=== PATIENT | female | born 1945 | race Caucasian/White ===

== ENCOUNTER 2021-02-02 21:59 | Emergency (ER) | payer OTHER, SELFPAY ==
[~2021-02-02] VITALS: Ht 170.2 cm; Wt 95.3 kg
[2021-02-02 22:06] VITALS: BP_SYST 158
[2021-02-02] MEDS ORDERED: LEVO125T8 PO (22:35)
[2021-02-02] MEDS ORDERED: TOPXL100 PO (22:35)
[2021-02-02] MEDS ORDERED: FERR325T30 PO (22:35)
[2021-02-02] MEDS ORDERED: DIGO125T PO (22:35)
[2021-02-02] MEDS ORDERED: LISI20TA PO (22:35)
[2021-02-02] MEDS ORDERED: ASPI-1393 PO (22:35)
[2021-02-02] MEDS ORDERED: ASCO500C18 PO (22:35)
[2021-02-02] MEDS ORDERED: FURO20TA4 PO (22:35)
[2021-02-02] MEDS ORDERED: LIP20 PO (22:35)
[2021-02-02 22:39] LABS: BILIRUBIN,URINE NEGATIVE (NEGATIVE); COLOR,URINE YELLOW (YELLOW); GLUCOSE,URINE NEGATIVE (NEGATIVE); KETONES,URINE NEGATIVE (NEGATIVE); LEUKOCYTE ESTERASE ,URINE 1+ (NEGATIVE); NITRITE, URINE NEGATIVE (NEGATIVE); PH,URINE 5.5 (5.0-8.0); PROTEIN URINE NEGATIVE (NEGATIVE); UROBILINOGEN,URINE 0.2 (0.2-1.0)
[2021-02-02 22:40] LABS: BLOOD, URINE TRACE (NEGATIVE); CLARITY/URINE SLIGHTLY CLOUDY (CLEAR)
[2021-02-02 23:07] LABS: BACTERIA,URINE FEW /HPF (None Seen)
[2021-02-02] MEDS: hydrALAZINE HCL 20 MG/ML VIAL IVP ONE (23:40)
[2021-02-02] MEDS ORDERED: hydrALAZINE HCL 20 MG/ML VIAL ONE (23:41)
[2021-02-02 23:49] LABS: BASOPHILS % (AUTO) 0.7 % (0.0-2.0); EOSINOPHILS # (AUTO) 0.2 K/uL (0.0-0.4); EOSINOPHILS % (AUTO) 3.1 % (0.0-4.0); HEMATOCRIT 28.7 % (36-48); HEMOGLOBIN 9.6 g/dL (12.0-16.0); LYMPHOCYTES # (AUTO) 1.4 K/uL (1.0-5.5); MEAN CORPUSCULAR HEMOGLOBIN 31 pg (27-31); MEAN CORPUSCULAR HGB CONC 33 % (32-36); MEAN CORPUSCULAR VOLUME 92 fL (79.0-98.0); MONOCYTES # (AUTO) 0.5 K/uL (0.0-1.0); MONOCYTES % (AUTO) 9.6 % (1.7-9.3); NEUTROPHILS # (AUTO) 2.8 K/uL (1.8-7.7); NEUTROPHILS % (AUTO) 57.6 % (40.0-70.0); PLATELET COUNT (AUTO) 307 K/uL (130-430); RED BLOOD CELL COUNT(AUTO) 3.13 MIL/uL (4.2-6.2); RED CELL DISTRIBUTION WIDTH 13.2 % (9.0-15.0); WHITE BLOOD COUNT (AUTO) 4.9 K/uL (4.8-10.8)
[2021-02-02 23:50] LABS: PROTHROMBIN TIME 9.8 SECS (9.5-12.5)
[2021-02-02 23:51] LABS: ANION GAP 6 (5-15); CALCIUM 8.3 mg/dL (8.4-11.0); CHLORIDE 106 mmol/L (98-107); GLUCOSE 153 mg/dL (70-99); POTASSIUM 4.1 mmol/L (3.5-5.1); SODIUM SERUM 139 mmol/L (136-145); UREA NITROGEN, BLOOD 20 mg/dL (8-21)
[2021-02-03] MEDS: hydrALAZINE HCL 20 MG/ML VIAL IVP ONE (00:02)
[2021-02-03 00:05] LABS: ALANINE AMINOTRANSFERASE 17 U/L (12-78); ALBUMIN 3.2 g/dL (3.4-4.8); ASPARTATE AMINOTRANSFERASE 12 U/L (10-37); DIGOXIN 1.9 ng/mL (0.80-2.00); TOTAL BILIRUBIN 0.3 mg/dL (0.0-1.0)
[2021-02-03] MEDS ORDERED: ONDANSETRON HCL 4 MG/2 ML VIAL ONE (00:59)
[2021-02-03] MEDS: ONDANSETRON HCL 4 MG/2 ML VIAL IVP ONE (01:05)
[2021-02-03] MEDS ORDERED: NITR-85 PO (01:29)
[2021-02-03] MEDS ORDERED: ONDA-8 TL (01:29)
[2021-02-03 02:00] VITALS: BP_SYST 154
[2021-02-03] MEDS: NITROFURANTOIN MONOHYD/M-CRYST 100 MG CAPSULE (MacroBID) PO ONE (02:14)
[2021-02-03] MEDS: ACETAMINOPHEN 325 MG TABLET PO ONE (02:14)
[2021-02-09] MEDS ORDERED: DOCU-144 PO (12:22)
[2021-02-09] MEDS ORDERED: LISI10TA29 PO (12:22)
[2021-02-09] MEDS ORDERED: HCT25 PO (12:22)
[2021-02-09] MEDS ORDERED: HYDR-4038 PO (12:22)
[2021-02-09] MEDS ORDERED: PSYL3.4P5 PO (12:22)
[2021-02-09] MEDS ORDERED: NOR10 PO (12:22)
== END 2021-02-03 02:00 | disposition home or self-care (01) ==
LOC: SED 21:59
DX: I10 Essential (primary) hypertension (principal); D64.9 Anemia, unspecified; I48.91 Unspecified atrial fibrillation; E03.9 Hypothyroidism, unspecified; Z79.899 Other long term (current) drug therapy; Z20.822 Contact with and (suspected) exposure to COVID-19
CPT/HCPCS: 36415; 70450; 71045; 76376; 80053; 80162; 81000; 83880; 84484; 85025; 85610; 85730; 87086; 87426; 93005; 96374; 96375; 99285; J0360; J2405

== ENCOUNTER 2021-02-03 21:18 | Emergency (ER) | payer OTHER ==
[~2021-02-03] VITALS: Ht 170.2 cm; Wt 81.6 kg
[~2021-02-03 21:18] MED LIST: ASCO500C18 PO; ASPI-1393 PO; DIGO125T PO; FERR325T30 PO; FURO20TA4 PO; LEVO125T8 PO; LIP20 PO; LISI20TA PO; NITR-85 PO; ONDA-8 TL; TOPXL100 PO
[2021-02-03 21:24] VITALS: BP_SYST 201
[2021-02-03] MEDS ORDERED: METOPROLOL TARTRATE 25 MG TABLET PO ONE (22:30)
[2021-02-03] MEDS ORDERED: hydrALAZINE HCL 20 MG/ML VIAL IVP ONE (22:45)
[2021-02-03 23:29] VITALS: BP_SYST 171
== END 2021-02-03 23:29 | disposition home or self-care (01) ==
LOC: SED 21:18
DX: I10 Essential (primary) hypertension (principal); N39.0 Urinary tract infection, site not specified; E11.9 Type 2 diabetes mellitus without complications; Z79.899 Other long term (current) drug therapy
CPT/HCPCS: 96374; 99283; J0360

== ENCOUNTER 2022-01-27 15:50 | Emergency (ER) | payer OTHER ==
[~2022-01-27] VITALS: Ht 157.5 cm; Wt 86.2 kg
[~2022-01-27 15:50] MED LIST changes: +DOCU-144 PO; +HCT25 PO; +HYDR-4038 PO; +LISI10TA29 PO; +NOR10 PO; +PSYL3.4P5 PO; -TOPXL100 PO
[2022-01-27 15:57] VITALS: BP_SYST 140
--- NOTE | 2022-01-27 16:19 | NUR ---
Patient to ER bed 04 to gown for evaluation. Side rails up.
--- NOTE | 2022-01-27 16:45 | NUR ---
SING AT BEDSIDE FOR EVALUATION.
[2022-01-27] MEDS ORDERED: KETOROLAC TROMETHAMINE 60 MG/2 ML VIAL IM ONE (17:00)
--- NOTE | 2022-01-27 17:50 | NUR ---
patient aaox4 and ambulatory from home c/o lower back pain that radiates to left leg. stating having 9/10 pain. able to ambulate. per patient it started this morning. doesnt speak faroese. son at bedside to translate. denies any trauma to leg.
--- NOTE | 2022-01-27 17:53 | NUR ---
PATIENT TAKEN TO XRAY VIA WHEELCHAIR.
[2022-01-27] MEDS ORDERED: IBUP-1969 PO (18:19)
[2022-01-27] MEDS ORDERED: HYDR-3917 PO (18:19)
[2022-01-27 18:37] VITALS: BP_SYST 140
--- NOTE | 2022-01-27 18:38 | NUR ---
Patient given written and verbal discharge instructions and verbalizes understanding. DR.SING HETAL GARCIA discussed with patient the results and treatment provided. Patient in stable condition. ID arm band removed. Rx of NORCO, MOTRIN given. Patient educated on pain management and to follow up with PMD. Pain Scale 0/10 Opportunity for questions provided and answered. Medication side effect fact sheet provided.
== END 2022-01-27 18:38 | disposition home or self-care (01) ==
LOC: SED 15:50
DX: M54.32 Sciatica, left side (principal); E11.9 Type 2 diabetes mellitus without complications; I10 Essential (primary) hypertension; Z79.899 Other long term (current) drug therapy
CPT/HCPCS: 72100; 96372; 99283; J1885

== ENCOUNTER 2022-02-12 11:45 | Emergency (ER) | payer OTHER ==
[~2022-02-12 11:45] MED LIST changes: +HYDR-3917 PO; +IBUP-1969 PO
[2022-02-12 12:11] VITALS: BP_SYST 113
--- NOTE | 2022-02-12 12:11 | NUR ---
Pt triaged and placed in waiting room pending bed availability.
--- NOTE | 2022-02-12 12:20 | NUR ---
ER at bedside examining patient.
--- NOTE | 2022-02-12 12:20 | NUR ---
RECEIVED PT IN BED #4 FROM HOME WITH CC OF ABDOMINAL PAIN AND NAUSEA. PT IS STABLE, NAD, VSS, AAOx4, AWAITING ASSESSMENTS WITH DISPOSITION WITH PLAN OF CARE.
--- NOTE | 2022-02-12 12:21 | NUR ---
Patient to ER bed 4 for evaluation. Side rails up. Report given to Eliezer GOODE.
[2022-02-12 13:15] LABS: BASOPHILS # (AUTO) 0.1 K/uL (0.0-0.2); BASOPHILS % (AUTO) 1.1 % (0.0-2.0); EOSINOPHILS # (AUTO) 0.2 K/uL (0.0-0.4); HEMATOCRIT 30.8 % (36-48); HEMOGLOBIN 10.4 g/dL (12.0-16.0); LYMPHOCYTES # (AUTO) 1.4 K/uL (1.0-5.5); LYMPHOCYTES % (AUTO) 28.3 % (20.5-51.5); MEAN CORPUSCULAR HEMOGLOBIN 31 pg (27-31); MEAN CORPUSCULAR HGB CONC 34 % (32-36); MEAN CORPUSCULAR VOLUME 92 fL (79.0-98.0); MONOCYTES # (AUTO) 0.3 K/uL (0.0-1.0); NEUTROPHILS # (AUTO) 2.9 K/uL (1.8-7.7); NEUTROPHILS % (AUTO) 59.6 % (40.0-70.0); PLATELET COUNT (AUTO) 313 K/uL (130-430); RED BLOOD CELL COUNT(AUTO) 3.34 MIL/uL (4.2-6.2); RED CELL DISTRIBUTION WIDTH 12.8 % (9.0-15.0); WHITE BLOOD COUNT (AUTO) 4.9 K/uL (4.8-10.8)
[2022-02-12 13:24] LABS: ANION GAP 9 (5-15); CALCIUM 8.5 mg/dL (8.4-11.0); CHLORIDE 104 mmol/L (98-107); CREATININE 2.23 mg/dL (0.55-1.30); GLUCOSE 363 mg/dL (70-99); POTASSIUM 4.5 mmol/L (3.5-5.1); SODIUM SERUM 134 mmol/L (136-145); UREA NITROGEN, BLOOD 50 mg/dL (8-21)
[2022-02-12 13:30] LABS: AMYLASE 30 U/L (0-100); ASPARTATE AMINOTRANSFERASE 13 U/L (10-37); LACTATE DEHYDROGENASE 116 U/L (81-234); LIPASE 62 U/L (73-393); TOTAL BILIRUBIN 0.3 mg/dL (0.0-1.0)
[2022-02-12 13:33] LABS: C-REACTIVE PROTEIN QUANT < 0.2 mg/dL (0-0.5)
[2022-02-12 13:53] LABS: ALANINE AMINOTRANSFERASE 7 U/L (12-78)
[2022-02-12] MEDS ORDERED: HYDR-3917 PO (13:55)
[2022-02-12] MEDS ORDERED: OMEP20CA15 PO (13:55)
[2022-02-12] MEDS ORDERED: INSULIN NPH/REGULAR 70-30, 100 UNITS/ML, 10 ML VIAL SUBCUT ONE (14:00)
[2022-02-12 14:05] VITALS: BP_SYST 113
--- NOTE | 2022-02-12 14:06 | NUR ---
Patient given written and verbal discharge instructions and verbalizes understanding. ER MD discussed with patient the results and treatment provided. Patient in stable condition. ID arm band removed. Rx of given. Patient educated on pain management and to follow up with PMD. Opportunity for questions provided and answered. Medication side effect fact sheet provided.
== END 2022-02-12 14:06 | disposition home or self-care (01) ==
LOC: SED 11:45
DX: K29.70 Gastritis, unspecified, without bleeding (principal); E11.65 Type 2 diabetes mellitus with hyperglycemia; K80.80 Other cholelithiasis without obstruction; N28.9 Disorder of kidney and ureter, unspecified; I10 Essential (primary) hypertension; Z79.899 Other long term (current) drug therapy
CPT/HCPCS: 36415; 74176; 76376; 80053; 82150; 83605; 83615; 83690; 84484; 85025; 86140; 96372; 99284; J1815